=== PATIENT | male | born 1950 | race Caucasian/White ===

== ENCOUNTER → 2019-10-24 | Outpatient (CLI) | payer OTHER ==
[~2019-10-24] VITALS: Ht 195.6 cm; Wt 124.7 kg
[~2019-10-24] MED LIST: PROBIOTIC1 EAC3 PO; PROSCAR 5MG TABL5 M1 PO; PROTONIX 20 MG20 MG PO
--- NOTE | 2019-10-25 20:22 | P ---
[facility] [place] [address] PROCEDURE REPORT Name: BULL CARDOSO Room #: REG OLAMIDE ChamberlainSanti#: [id number] Admission: 10/24/19 Attend Phys: Lupillo Louis MD Discharge: Date of : 54 Report #: [id number] THIS REPORT FOR: cc: Alberto Jarrett MD, Eric K. 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 He recently had routine surveillance biopsies and is found to have evidence of Trevino's esophagus in distal esophagus. He returns today for radiofrequency ablation of Trevino's esophagus. PREOPERATIVE DIAGNOSIS: History of Trevino's esophagus with high-grade dysplasia. POSTOPERATIVE DIAGNOSES: 1. History of Trevino's esophagus with high-grade dysplasia. 2. Erosive esophagitis. 3. Small hiatus hernia. 4. Gastric polyps, hyperplastic in appearance. MEDICATIONS: Deep sedation with propofol per anesthesia. SPECIMEN: None. ESTIMATED BLOOD LOSS: 3 mL. PROCEDURE: EGD with radiofrequency ablation of Trevino's esophagus. FINDINGS: Prior to propofol sedation, procedure of upper endoscopy and radiofrequency ablation was reviewed with the patient as well as potential risks and its complications. He indicates he understands and desires that we proceed. DESCRIPTION OF PROCEDURE: With the patient in left lateral decubitus position, the Olympus video endoscope was inserted in the cervical esophagus under direct vision without difficulty. Examination of this organ through its entire length revealed normal esophageal mucosa into the distal esophagus. In the distal esophagus, couple of centimeters above the squamocolumnar junction, there were 2 punctate islands of Trevino's type mucosa. I might point out we used both white light and narrow banded imaging to examine the esophagus. The squamocolumnar junction was inspected. The Z line was somewhat unremarkable. A couple of small erosions were noted. No ulcers, strictures or mass lesions were seen. In addition, right about the level of the squamocolumnar junction, there appeared [facility] [address] [place] [address] PROCEDURE REPORT Name: BULL CARDOSO CORKY Room #: REG [facility]ITAL[facility] [id number] Admission: 10/24/19 Attend Phys: Lupillo Louis MD Discharge: Date of : 54 Report #: [id number] to be some indentations consistent with possible Trevino's mucosa. Again, previous biopsies did reveal evidence of residual Trevino's mucosa. Extensive Trevino's mucosa was not seen. In addition, there was a 3-4 cm sliding type hiatus hernia. Mucosa and hernia was unremarkable. Scope was advanced in the stomach, was examined on end view as well as retroflexed views. Hyperplastic polyps were seen in the stomach. These have been previously identified and thought to be unchanged. Examination of the distal stomach revealed normal mucosa. The pylorus was unremarkable. Duodenal bulb was unremarkable. Postbulbar sweep was unremarkable. The scope was then withdrawn back in the distal esophagus. It was rinsed with Mucomyst solution. This solution was suctioned away. We then withdrew the scope and fitted it with a 60 radiofrequency device. The scope with the attached device was advanced in the esophagus in the 2 islands as well as squamocolumnar junction were treated with 12 joules per cm2 per digital service engineer's recommendations. Each spot was treated with 2 applications. Once all areas had been treated the scope was withdrawn. It was fitted with the cleaning cap. The cleaning cap of the scope was reinserted. The coagulant was scraped off the treated sites. We then withdrew the scope and reattached the radiofrequency ablation device, which had been clean. We then treated all areas with 2 more applications. A total of 32 applications were applied today. After all visible sites of Trevino's were treated scope was withdrawn. The patient tolerated the procedure well. CONDITION OF THE PATIENT UPON DISCHARGE: Following procedure, the patient was drowsy, will be discharged home when fully ambulatory. INSTRUCTIONS TO THE PATIENT AND FAMILY AT THE TIME OF DISCHARGE: I advised the patient to start off with clear liquids and advance as tolerated. We will give him GI cocktail as well as Lortab elixir to use as needed. He can advance diet as tolerated. Since there was esophagitis, we will have him increase his pantoprazole to from 20 to 40 mg daily. He should return for repeat EGD and biopsy in about 8 weeks. <ELECTRONICALLY SIGNED> By: Lupillo Louis MD 10/25/192021 [id number] Lupillo Louis MD /graham
== END | disposition home or self-care (01) ==
LOC: GI 08:08
PROVIDERS: ATTEND Specialist
DX: K22.711 Barrett's esophagus with high grade dysplasia (principal); K31.7 Polyp of stomach and duodenum; K44.9 Diaphragmatic hernia without obstruction or gangrene; K21.9 Gastro-esophageal reflux disease without esophagitis; I10 Essential (primary) hypertension; Z98.890 Other specified postprocedural states; Z79.899 Other long term (current) drug therapy; Z11.59 Encounter for screening for other viral diseases; Z85.528 Personal history of other malignant neoplasm of kidney
CPT/HCPCS: 62110; 62900